=== PATIENT | female | born 1945 | race Caucasian/White ===

== ENCOUNTER → 2019-05-12 | Outpatient (CLI) | payer MEDICARE, OTHER | LOC: MC.RAD 05-04 13:45 | DX: Z12.31 Encounter for screening mammogram for malignant neoplasm of breast (principal) ==

== ENCOUNTER → 2020-05-21 | Outpatient (CLI) | payer MEDICARE, OTHER | LOC: MC.RAD 11:12 | DX: Z12.31 Encounter for screening mammogram for malignant neoplasm of breast (principal); N64.89 Other specified disorders of breast; R92.0 Mammographic microcalcification found on diagnostic imaging of breast ==

== ENCOUNTER → 2020-06-03 | Outpatient (CLI) | payer MEDICARE, OTHER | LOC: MC.RAD 09:27 | DX: N63.10 Unspecified lump in the right breast, unspecified quadrant (principal) ==

== ENCOUNTER → 2020-11-06 | Outpatient (CLI) | payer MEDICARE, OTHER ==
[~2020-11-06] MED LIST: B-121000 MCG PO; GLUCOPHAGE500 MG/TAB PO; MASON NATURAL2000 IU PO; NORCO 325 MG-51 TAB PO; PRINIVIL10 MG PO; TEMOVATE45OI TOP; TIROSINT50 MC1 PO; TYLENOL 8 HR PO; TYLENOL PM EXTR1 TA1 PO; ZOCOR 40MG40 MG PO
== END ==
LOC: MC.RAD 09:56
DX: N63.10 Unspecified lump in the right breast, unspecified quadrant (principal); N64.89 Other specified disorders of breast

== ENCOUNTER 2020-11-19 06:22 | Day surgery (SDC) | payer MEDICARE, OTHER ==
[~2020-11-19] VITALS: Ht 152.4 cm; Wt 71.1 kg
[2020-11-19 10:39] VITALS: BP 147/57; PULSE 76; TEMP 98
[2020-11-19] MEDS ORDERED: GLUCOPHAGE500 MG/TAB PO ×2 (12:30→12:31)
[2020-11-19] MEDS ORDERED: PRINIVIL10 MG PO (12:30)
[2020-11-19] MEDS ORDERED: ZOCOR 40MG40 MG PO (12:32)
[2020-11-19] MEDS ORDERED: TIROSINT50 MC1 PO (12:32)
[2020-11-19] MEDS ORDERED: B-121000 MCG PO (12:33)
[2020-11-19] MEDS ORDERED: MASON NATURAL2000 IU PO (12:34)
[2020-11-19] MEDS ORDERED: TYLENOL PM EXTR1 TA1 PO (12:35)
[2020-11-19] MEDS ORDERED: TYLENOL 8 HR PO (12:35)
[2020-11-19] MEDS ORDERED: TEMOVATE45OI TOP (12:36)
[2020-11-19 14:44] VITALS: BP 122/54; PULSE 72
[2020-11-19] MEDS ORDERED: NORCO 325 MG-51 TAB PO (14:44)
--- NOTE | 2020-11-19 14:44 | NUR ---
Patient returns to room 1 per cart from surgery accompanied by Roberto Carlos REINOSO and Aicha MORRELL. Patient is awake and alert. Dressing clean and dry on the right breast area. Patient denies pain or nausea. Siderails up x2 and call light in reach. IV fluids infusing. Patient allowed to rest.
[2020-11-19 14:59] VITALS: BP 139/62; PULSE 68
--- NOTE | 2020-11-19 14:59 | NUR ---
Sipping on Diet Pepsi. Spouse in room. Denies pain or nausea.
[2020-11-19 15:14] VITALS: BP 142/58; PULSE 66
--- NOTE | 2020-11-19 15:14 | NUR ---
Eating muffin and denies nausea. Dressing remains dry on the right breast.
[2020-11-19 15:29] VITALS: BP 136/52; PULSE 66
--- NOTE | 2020-11-19 15:29 | NUR ---
Continues to sip on diet Pepsi and eat muffin. Denies pain or nausea.
--- NOTE | 2020-11-19 15:40 | NUR ---
IV discontinued and site is free of redness. Assisted to the edge of the cart. Able to dress self.
--- NOTE | 2020-11-19 16:10 | NUR ---
Dismissal instructions given and voices understanding the these. Instructed that script for pain medication will be available to be picked up at [facility]. Dressing on the right breast remains clean and dry.
--- NOTE | 2020-11-19 16:16 | NUR ---
Patient dismissed to home driven by spouse and taken to the front door per wheelchair and assisted into vehicle by Delphine MORRELL.
== END 2020-11-19 15:59 | disposition home or self-care (01) ==
LOC: SDCO 06:22
DX: C50.411 Malignant neoplasm of upper-outer quadrant of right female breast (principal); E11.9 Type 2 diabetes mellitus without complications; I10 Essential (primary) hypertension; G47.33 Obstructive sleep apnea (adult) (pediatric); E03.9 Hypothyroidism, unspecified; E78.00 Pure hypercholesterolemia, unspecified; Z79.84 Long term (current) use of oral hypoglycemic drugs; Z17.0 Estrogen receptor positive status [ER+]; Z79.899 Other long term (current) drug therapy; Z85.44 Personal history of malignant neoplasm of other female genital organs
CPT/HCPCS: A4648; A9541; J0690; J1100; J2250; J2405; J2704; J2795; J3010; J7120

== ENCOUNTER → 2021-05-26 | Outpatient (CLI) | payer MEDICARE, OTHER | LOC: MC.RAD 10:59 | DX: C50.919 Malignant neoplasm of unspecified site of unspecified female breast (principal); Z98.890 Other specified postprocedural states; Z92.3 Personal history of irradiation ==

== ENCOUNTER → 2021-11-28 | Outpatient (CLI) | payer MEDICARE, OTHER | LOC: MC.RAD 12:49 | DX: C50.911 Malignant neoplasm of unspecified site of right female breast (principal); Z90.11 Acquired absence of right breast and nipple ==

== ENCOUNTER → 2023-07-22 | Outpatient (CLI) | payer MEDICARE, OTHER | LOC: MC.RAD 13:20 | DX: Z12.31 Encounter for screening mammogram for malignant neoplasm of breast (principal) ==